=== PATIENT | male | born 1990 | race Caucasian/White ===

== ENCOUNTER → 2022-06-15 | Emergency (ER) | payer OTHER ==
[~2022-06-15] VITALS: Ht 172.7 cm; Wt 73.5 kg
[~2022-06-15] MED LIST: ABILIFY2 MG PO; BUSPAR; DEXILANT30 MG PO; TOPAMAX25 MG; ZOLOFT100 MG PO
== END | disposition home or self-care (01) ==
LOC: ER 22:23
DX: T80.89XA Other complications following infusion, transfusion and therapeutic injection, initial encounter (principal); T45.0X5A Adverse effect of antiallergic and antiemetic drugs, initial encounter; X58.XXXA Exposure to other specified factors, initial encounter; Y93.9 Activity, unspecified; Y92.9 Unspecified place or not applicable; Y99.9 Unspecified external cause status